=== PATIENT | female | born 1985 | race Caucasian/White ===

== ENCOUNTER 2017-05-26 08:09 | Outpatient (CLI) | payer MEDICAID, BC ==
[~2017-05-26] VITALS: Ht 180.3 cm; Wt 106.8 kg
[~2017-05-26 08:09] MED LIST: ANTIVERT 25MG25 MG PO; ELAVIL10 MG PO; MAXALT MLT10 MG/TAB PO; MEDROL 4MG DOSPA4 MG PO; NO HOME MEDICATIONS; PREDNISONE20 MG PO; VALIUM2 MG PO; ZOCOR 10MG10 MG PO
[2017-05-26 08:11] VITALS: BP 116/71; PULSE 74; TEMP 98.1
[2017-05-26] MEDS ORDERED: CALCIUM 600MG+D1 TAB PO (08:31)
[2017-05-26] MEDS ORDERED: SELENIUM2 (08:31)
[2017-05-26] MEDS ORDERED: PRENATAL (08:31)
[2017-05-26 08:45] VITALS: BP 116/71; PULSE 74; TEMP 98.1
== END 2017-05-26 08:50 | disposition home or self-care (01) ==
LOC: LDRO 08:09 → LDR 08:15 → LDRO 08:50
DX: Z34.03 Encounter for supervision of normal first pregnancy, third trimester (principal); Z3A.31 31 weeks gestation of pregnancy
CPT/HCPCS: OP

== ENCOUNTER 2017-07-29 02:44 | Inpatient (IN) | payer BC, MEDICAID ==
[2017-07-29] VITALS (92 sets, daily range): BP systolic 87–145; BP diastolic 47–80; PULSE 67–118; TEMP 97.5–99.7
[~2017-07-29] VITALS: Ht 182.9 cm; Wt 116.8 kg
[~2017-07-29 02:44] MED LIST changes: +CALCIUM 600MG+D1 TAB PO; +PRENATAL; +SELENIUM2
[2017-07-29] MEDS ORDERED: FLAGYL500 MG (03:05)
[2017-07-29 05:04] LABS: BASO % 0.3 % (0.0-2.0); EOS # 0.2 (0.0-0.7); EOS % 1.8 % (0-4.0); GRAN # 8.1 (1.4-6.5); GRAN % 71.6 % (42.2-75.2); HEMATOCRIT 33.2 % (37.0-47.0); LYMPH # 1.8 (1.2-3.4); MEAN CELL VOLUME 88 fl (80.0-100.0); MEAN CORPUSCULAR HEMOGLOBIN 29 pg (27.0-31.0); MEAN CORPUSCULAR HGB CONC 33 g/dl (33.0-37.0); MEAN PLATELET VOLUME 10.5 fl (7.4-10.4); MONO # 1.1 (0.1-0.6); MONO % 9.7 % (1.7-9.3); PLATELET COUNT 150 K/mm3 (130-400); RED BLOOD COUNT 3.78 M/mm3 (4.10-5.30); WHITE BLOOD COUNT 11.3 K/mm3 (4.8-10.8)
[2017-07-30] VITALS (9 sets, daily range): BP systolic 99–130; BP diastolic 55–76; PULSE 88–106; TEMP 97.2–97.9
[2017-07-31 07:00] VITALS: BP 114/68; PULSE 76; TEMP 98.2
[2017-07-31] MEDS ORDERED: IBU600 MG PO (12:37)
[2017-07-31 16:30] VITALS: BP 103/63; PULSE 95; TEMP 97.6
== END 2017-07-31 17:50 | disposition home or self-care (01) | DRG 775 ==
LOC: LDRO 02:44 → OB 04:18 → LDR 04:18 → OB 07-30 06:00
PROVIDERS: Obstetrics & Gynecology
PROC: 10E0XZZ Delivery of Products of Conception, External Approach (ICD-10-PCS; principal; 2017-07-29)
PROC: 0KQM0ZZ Repair Perineum Muscle, Open Approach (ICD-10-PCS; 2017-07-29)
DX: O48.0 Post-term pregnancy (principal); O70.1 Second degree perineal laceration during delivery; O99.824 Streptococcus B carrier state complicating childbirth; Z3A.40 40 weeks gestation of pregnancy; Z37.0 Single live birth
CPT/HCPCS: J2400; J2540; J2590; J7060; J7120

== ENCOUNTER 2018-02-05 18:34 | Emergency (ER) | payer SELFPAY ==
[~2018-02-05] VITALS: Ht 180.3 cm; Wt 122.7 kg
[~2018-02-05 18:34] MED LIST changes: +FLAGYL500 MG; +IBU600 MG PO
[2018-02-05] MEDS ORDERED: CEPHALEXIN500 M1 PO (19:07)
[2018-02-05 19:11] VITALS: BP 125/77
[2018-02-05 19:38] LABS: BASO % 0.2 % (0.0-2.0); EOS # 0.1 (0.0-0.7); EOS % 1.3 % (0-4.0); GRAN # 9.1 (1.4-6.5); GRAN % 83.8 % (42.2-75.2); HEMATOCRIT 39.3 % (37.0-47.0); HEMOGLOBIN 13.4 g/dl (12.5-16.0); LYMPH # 0.8 (1.2-3.4); LYMPH % 7.6 % (20.0-51.0); MEAN CELL VOLUME 81 fl (80.0-100.0); MEAN CORPUSCULAR HEMOGLOBIN 28 pg (27.0-31.0); MEAN CORPUSCULAR HGB CONC 34 g/dl (33.0-37.0); MEAN PLATELET VOLUME 9.3 fl (7.4-10.4); MONO # 0.8 (0.1-0.6); MONO % 6.9 % (1.7-9.3); PLATELET COUNT 150 K/mm3 (130-400); RED BLOOD COUNT 4.83 M/mm3 (4.10-5.30)
[2018-02-05 19:50] LABS: CALCIUM 9.1 mg/dL (8.4-10.2); CREATININE, serum 0.63 mg/dL (0.52-1.25); POTASSIUM 3.6 mmol/L (3.4-5.0)
[2018-02-05 20:20] LABS: COLLECTION METHOD CLEAN CATCH
[2018-02-05 20:28] LABS: MUCOUS Present /lpf; PH 6 (5-8); SQUAMOUS EPITHELIAL 0-2 /hpf; URINE APPEARANCE Clear; URINE BACTERIA None Seen /hpf; URINE BILIRUBIN Negative (NEGATIVE); URINE BLOOD Negative (NEGATIVE); URINE COLOR Yellow; URINE GLUCOSE Negative (NEGATIVE); URINE KETONE Negative (NEGATIVE); URINE LEUKOCYTE ESTERASE Trace (NEGATIVE); URINE NITRATE Negative (NEGATIVE); URINE PROTEIN(semi-quant) Negative (NEGATIVE); URINE UROBILINOGEN Negative (NEGATIVE)
[2018-02-05 20:55] VITALS: PULSE 97; TEMP 98.3
== END 2018-02-05 20:55 | disposition home or self-care (01) ==
LOC: COL.ER 18:34
PROVIDERS: Emergency Medicine
DX: N61.0 Mastitis without abscess (principal); E03.9 Hypothyroidism, unspecified
CPT/HCPCS: J1885

== ENCOUNTER → 2018-05-18 | Outpatient (CLI) | payer MEDICAID ==
[~2018-05-18] MED LIST changes: +CEPHALEXIN500 M1 PO
== END ==
LOC: MC.RAD 09:55
DX: Z12.31 Encounter for screening mammogram for malignant neoplasm of breast (principal); Z80.3 Family history of malignant neoplasm of breast

== ENCOUNTER 2019-12-18 16:07 | Emergency (ER) | payer MEDICAID ==
[~2019-12-18] VITALS: Ht 180.3 cm; Wt 120.0 kg
[2019-12-18] MEDS ORDERED: LEVOXYL0.05 MG PO (16:17)
[2019-12-18 17:42] LABS: BASO % 0.4 % (0.0-2.0); EOS # 0.4 (0.0-0.7); EOS % 5.4 % (0-4.0); GRAN # 3.6 (1.4-6.5); GRAN % 50.5 % (42.2-75.2); HEMOGLOBIN 12.8 g/dl (12.5-16.0); LYMPH # 2.3 (1.2-3.4); LYMPH % 32.2 % (20.0-51.0); MEAN CELL VOLUME 85 fl (80.0-100.0); MEAN CORPUSCULAR HEMOGLOBIN 28 pg (27.0-31.0); MEAN CORPUSCULAR HGB CONC 33 g/dl (33.0-37.0); MEAN PLATELET VOLUME 9.2 fl (7.4-10.4); MONO # 0.8 (0.1-0.6); MONO % 11.1 % (1.7-9.3); PLATELET COUNT 214 K/mm3 (130-400); RED BLOOD COUNT 4.59 M/mm3 (4.10-5.30); REDCELL DISTRIBUTION WIDTH-CV 12.2 % (11.5-14.5)
[2019-12-18 18:15] VITALS: BP 122/72; PULSE 92; TEMP 98.2
== END 2019-12-18 18:16 | disposition home or self-care (01) ==
LOC: COL.ER 16:07
PROVIDERS: Physician Assistant
DX: R50.9 Fever, unspecified (principal); N93.9 Abnormal uterine and vaginal bleeding, unspecified; E03.9 Hypothyroidism, unspecified; Z20.828 Contact with and (suspected) exposure to other viral communicable diseases

== ENCOUNTER 2022-01-20 18:12 | Emergency (ER) | payer MEDICAID ==
[~2022-01-20] VITALS: Ht 180.3 cm; Wt 129.5 kg
[~2022-01-20 18:12] MED LIST changes: +LEVOXYL0.05 MG PO
[2022-01-20 21:53] VITALS: BP 136/78; PULSE 64; TEMP 98
== END 2022-01-20 21:53 | disposition home or self-care (01) ==
LOC: COL.ER 18:12
DX: R51.9 Headache, unspecified (principal); Z86.69 Personal history of other diseases of the nervous system and sense organs
CPT/HCPCS: J3030